=== PATIENT | female | born 1950 | race Caucasian/White ===

== ENCOUNTER 2017-03-19 07:14 | Day surgery (SDC) | payer OTHER ==
--- NOTE | 2017-03-19 12:14 | GI Report ---
REFERRING PHYSICIAN: Dr. Garret Candelario CELLOPHANE PRESS OPERATOR: Cornel Sebastian MD PROCEDURE MEDICATION: Propofol as per anesthesia. INDICATIONS: Patient is a 66-year-old woman who is referred for a screening. She had this done 10 or 11 years ago. She denies any change in her stools or blood in her stools. There is a family history of cancers, including lymphoma in her grandmother and her father had brain cancer. PROCEDURE PERFORMED: Colonoscopy. PROCEDURE: An Olympus video colonoscope was advanced to the rectum. A few small diverticula in the sigmoid. The colonoscope was slowly advanced all the way to the cecum. The appendiceal orifice and ileocecal valve looked normal. On slow withdrawal, the cecum, ascending colon, and transverse colon with no obvious intraluminal lesions noted. Descending colon and sigmoid, again, no obvious intraluminal lesions noted. A few small diverticula were noted. Retroflexion of the rectum was normal. Patient tolerated the procedure well. FINDINGS: A few small diverticula in the sigmoid colon, otherwise, unremarkable colonoscopy. RECOMMENDATIONS: 1. Continue high-fiber diet. 2. Consider re-looking at her colon in 10 years, sooner if clinically indicated. cc: Dr. Garret MCQUEEN
== END 2017-03-19 07:15 ==
LOC: OPSURG 07:14
PROVIDERS: ATTEND Internal Medicine Gastroenterology
DX: Z12.11 Encounter for screening for malignant neoplasm of colon (principal); K57.30 Diverticulosis of large intestine without perforation or abscess without bleeding
CPT/HCPCS: J2704; J7120; G0121; S1016